=== PATIENT | male | born 1945 | race Caucasian/White ===

== ENCOUNTER 2016-07-22 05:29 | Day surgery (SDC) | payer MEDICARE, OTHER ==
[2016-07-16 13:47] LABS: HEMOGLOBIN 13.9 g/dL (13.6-17.8)
[2016-07-16 13:57] LABS: ASCORBIC ACID (UR NOT ORDER) NEG (NEG); BILIRUBIN, URINE NEGATIVE (NEG); KETONE, URINE NEGATIVE (NEG); LEUKOCYTE ESTERASE(NOT OR TRACE (NEG); WBC (NOT ORDERED) (RFLEX) 4 (0-5)
[2016-07-16 14:01] LABS: BUN (BLOOD UREA NITROGEN) 18 MG/DL (6-23); CALCIUM, SERUM 8.8 MG/DL (8.5-10.4); CHLORIDE, SERUM 104 MMOL/L (96-112); CO2 (CARBON DIOXIDE) 29 MMOL/L (24-34); CREATININE 0.81 MG/DL (0.70-1.30); GFR AFRICAN AMERICAN 102 ML/MIN (>=60); GFR NON AFRICAN AMERICAN 88 ML/MIN (>=60); GLUCOSE, SERUM 87 MG/DL (60-99); POTASSIUM, SERUM 4.8 MMOL/L (3.5-5.3); SODIUM, SERUM 142 MMOL/L (135-148)
--- NOTE | ~2016-07-22 | OP ---
Record Of Operation [facility] [address] [place] [address] NAME: JEFFRY WOODWARD : 41 STATUS : [facility]#: [id number] AGE: 71 ADM/REG DATE : 07/22/16 MR#: [id number] REPORT SERV DATE: 07/22/16 DICTATED BY: JUDE BURK DATE: 07/22/16 REPORT STATUS : Draft TRANSCRIBED BY: MODL DATE: 07/22/16 DATE OF PROCEDURE: 07/22/2016 PREOPERATIVE DIAGNOSIS: Left knee medial meniscal tear. 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 PROCEDURE PERFORMED: Left knee arthroscopy with partial lateral meniscectomy, debriding chondroplasty of the medial femoral condyle, lateral tibial plateau with extensive synovectomy. SURGEON: Jude Burk M.D. [employer]ADER: Lulú Pritchard. ANESTHESIA: General. PROCEDURE IN DETAIL: The patient is clearly identified, and after obtaining informed consent, he is brought to the operating room at [facility] where he is induced under general anesthesia and has his left lower extremity prepped and draped in the usual manner. This concluded, after appropriate time-out procedure was performed. DENNIS exsanguination is performed and tourniquet is elevated to 350 mmHg and successfully tested, at which point, 30 mL of saline are instilled within the joint and anteromedial and anterolateral portal is formed and arthroscopy begins revealing extensive synovitis which is all debrided. Patellofemoral tracking is excellent despite some mild chondromalacia. ACL and PCL are intact. The medial compartment reveals medial femoral condyle, chondromalacia grade 2+ with some small flaps, which are debrided. The meniscus itself is with evidence of complex tearing, this is treated carefully with a combination of hand instruments, electric shaver, and partial medial meniscectomy. Subsequently, the lateral compartment revealed some lateral tibial plateau. Pathology in the lateral meniscus reveals a very large finger lying type fragment that is sitting in the anterolateral corner by the horn impinging directly into the tissues, this is carefully debrided as well as the meniscus and some chondromalacia is debrided as well. This concluded, the joints inspected and realizing no further care is necessary, it is copiously irrigated through the outflow cannula and drained, at which point, the portals are closed. Ropivacaine and morphine are instilled within the joint, at which point, the leg is carefully cleansed and dressed and the patient is allowed to awaken and is transferred to the recovery room in stable condition having tolerated the procedure well. ESTIMATED BLOOD LOSS: 5 mL. FLUIDS: 700 mL. TOURNIQUET TIME: 38 minutes. Record Of Operation [facility] [address] [place]. [address] NAME: JEFFRY WOODWARD : 41 STATUS : [facility]#: [id number] AGE: 71 ADM/REG DATE : 07/22/16 MR#: [id number] REPORT SERV DATE: 07/22/16 DICTATED BY: JUDE BURK DATE: 07/22/16 REPORT STATUS : Draft TRANSCRIBED BY: LISSETTE DATE: 07/22/16 PATHOLOGY: Sent specimen. MICROBIOLOGY: None. COMPLICATIONS: None. SPONGE AND NEEDLE COUNTS: Reportedly correct. ANTIBIOTICS: Administered appropriately preoperatively and ordered to be discontinued at the conclusion of the case. ELISSA/LISSETTE Jude Burk M.D. / [id number] CC: Vanessa Morris M.D.
[~2016-07-22 05:29] MED LIST: ADVAIR INH; ADVAIR100 INH; ADVAIR250 INH; FLOMAX4 PO; FOSAMAX5 MG PO; FOSAMAX70 MG PO; MULTI-VIT HP OR; NAP500 PO; PROVHFA INH; REFRESH TEAR0.5 % OP; SPIRIVA INH; SPIRIVA RESPIMAT INH; ULTRAM50 PO; VASOTEC5 PO; VIAGRA50 MG PO
[2016-11-11] MEDS ORDERED: BREO ELLIPTA INH (12:02)
== END 2016-07-22 14:51 | disposition home or self-care (01) ==
LOC: SDC 05:29
PROVIDERS: Orthopaedic Surgery
PROC: 0SBD4ZZ Excision of Left Knee Joint, Percutaneous Endoscopic Approach (ICD-10-PCS; principal; 2016-07-22 06:45)
DX: S83.252A Bucket-handle tear of lateral meniscus, current injury, left knee, initial encounter (principal); S83.222A Peripheral tear of medial meniscus, current injury, left knee, initial encounter; M22.42 Chondromalacia patellae, left knee; M65.862 Other synovitis and tenosynovitis, left lower leg; M25.862 Other specified joint disorders, left knee; J45.909 Unspecified asthma, uncomplicated; N40.0 Benign prostatic hyperplasia without lower urinary tract symptoms; J44.9 Chronic obstructive pulmonary disease, unspecified; Z88.0 Allergy status to penicillin; Z88.2 Allergy status to sulfonamides; Z79.899 Other long term (current) drug therapy; Z98.41 Cataract extraction status, right eye; Z98.42 Cataract extraction status, left eye; Z98.890 Other specified postprocedural states
CPT/HCPCS: 36415; 80048; 81001; 85014; 85018; 88304; 93005; A9270-GY; J0690; J2270; J2274; J2405; J2795; J3010